=== PATIENT | female | born 1980 | race Caucasian/White ===

== ENCOUNTER → 2017-01-13 | Outpatient (CLI) | payer MEDICAID ==
[2017-01-13 08:41] LABS: CREATININE 0.9 mg/dL (0.5-1.1)
== END | disposition disaster alternative care site (69) ==
LOC: GLAB 07:54 → GRAD 01-28 10:00 → GLAB 02-07 08:00
PROVIDERS: Surgery
DX: Z80.3 Family history of malignant neoplasm of breast (principal); N64.89 Other specified disorders of breast
CPT/HCPCS: A9577; C8908